=== PATIENT | female | born 1945 | race Caucasian/White ===

== ENCOUNTER 2016-09-20 05:37 | Inpatient (IN) | payer OTHER ==
[~2016-09-20] VITALS: Ht 157.5 cm; Wt 52.3 kg
[2016-09-20] VITALS (7 sets, daily range): BP systolic 106–131; BP diastolic 51–82
[~2016-09-20 05:37] MED LIST: XALATAN2.5 ML BOTH EYES; ZOCOR10 MG PO
[2016-09-20 11:06] LABS: HEMATOCRIT 32.9 % (36.0-46.0); MCH 31.9 PG (29.0-34.0); MCHC 33.4 G/DL (30.0-36.0); MCV 95.4 FL (83-99); MEAN PLAT.VOLUME 9.8 uM^3 (9.5-12.4); PLATELET COUNT 183 K/uL (156-360); RBC DIS.WIDTH-CV 12.8 % (11.8-14.6); RBC DIS.WIDTH-SD 44.1 % (39-53); RED BLOOD COUNT 3.45 M/uL (3.80-5.20)
[2016-09-20 11:42] LABS: WHITE BLOOD COUNT 3.9 K/uL (4.1-10.2)
[2016-09-21 03:54] VITALS: BP 101/54
[2016-09-21 05:19] LABS: HEMATOCRIT 31.4 % (36.0-46.0)
[2016-09-21 05:42] LABS: ANION GAP 8 MEQ/L (2-14); CHLORIDE 101 MEQ/L (99-109); GFR ESTIMATE (CALCULATED) > 59 mL/min/; GLUCOSE 121 mg/dL (70-99); POTASSIUM 4.2 MEQ/L (3.7-5.4); SAMPLE HEMOLYSIS CHECK 0; SAMPLE ICTERIC CHECK 0; SAMPLE LIPEMIA CHECK 0; SODIUM 133 MEQ/L (136-147); UREA NITROGEN (BUN) 12 mg/dL (9-23)
[2016-09-21 08:09] VITALS: BP 96/51
[2016-09-21 11:40] VITALS: BP 108/55
[2016-09-21 15:35] VITALS: BP 104/51
[2016-09-21 20:00] VITALS: BP 98/50
[2016-09-21 23:49] VITALS: BP 99/58
[2016-09-22 03:42] VITALS: BP 111/55
[2016-09-22 06:41] LABS: HEMATOCRIT 29.6 % (36.0-46.0); MCV 94.3 FL (83-99)
[2016-09-22 07:11] LABS: GLUCOSE 98 mg/dL (70-99); UREA NITROGEN (BUN) 10 mg/dL (9-23)
[2016-09-22 07:12] LABS: ANION GAP 8 MEQ/L (2-14); CHLORIDE 106 MEQ/L (99-109); GFR ESTIMATE (CALCULATED) > 59 mL/min/; POTASSIUM 3.9 MEQ/L (3.7-5.4); SAMPLE HEMOLYSIS CHECK 0; SAMPLE ICTERIC CHECK 0; SAMPLE LIPEMIA CHECK 0; SODIUM 139 MEQ/L (136-147)
[2016-09-22 08:13] VITALS: BP 101/49
[2016-09-22] MEDS ORDERED: LOVENOX40 MG/0.4 SC (08:46)
[2016-09-22] MEDS ORDERED: CELECOXIB200 MG PO (08:47)
[2016-09-22] MEDS ORDERED: SENNA PLUS TAB1 EACH PO (08:47)
[2016-09-22] MEDS ORDERED: ENDOCET 5-3251 EACH PO (08:47)
[2016-09-22 11:35] VITALS: BP 102/51
== END 2016-09-22 14:57 | DRG 470 ==
LOC: 2SOUTH 05:37 → 3WEST 11:22 → 2SOUTH 11:36 → 3WEST 09-22 14:57
PROVIDERS: Orthopaedic Surgery; Physician Assistant
PROC: 0SRD0J9 Replacement of Left Knee Joint with Synthetic Substitute, Cemented, Open Approach (ICD-10-PCS; principal; 2016-09-20)
DX: M17.12 Unilateral primary osteoarthritis, left knee (principal); R00.1 Bradycardia, unspecified; E87.1 Hypo-osmolality and hyponatremia; I95.81 Postprocedural hypotension; M81.0 Age-related osteoporosis without current pathological fracture; E78.00 Pure hypercholesterolemia, unspecified
CPT/HCPCS: 73560; 80048; 85014; 85018; 85027; J0690; J1170; J1650; J7050